=== PATIENT | female | born 1940 | race Caucasian/White ===

== ENCOUNTER 2019-12-25 11:47 | Outpatient (CLI) | payer MEDICARE, SELFPAY ==
[2019-12-25 12:52] LABS: Alanine Aminotransferase 15 U/L (4-35); Alkaline Phosphatase 133 U/L (38-126); Aspartate Amino Transferase 21 U/L (14-36); Bilirubin,Total 0.7 mg/dL (0.2-1.3); Blood Urea Nitrogen 23 mg/dL (7-17); Calcium 8.4 mg/dL (8.4-10.2); Carbon Dioxide 22 mmol/L (22-30); Chloride 102 mmol/L (98-107); Estimated Glomerular Filt Rate > 60; Glucose 104 mg/dL (65-105); Potassium 3.7 mmol/L (3.4-5.0); Sodium 139 mmol/L (137-145)
[2019-12-25 13:05] LABS: Parathyroid Intact 4.5 pg/mL (7.5-53.5)
[2019-12-25 13:21] LABS: Vitamin D 25 Hydroxy 41.2 ng/mL
== END 2019-12-25 11:48 | disposition home or self-care (01) ==
LOC: ANHLAB 11:49
PROVIDERS: PCP Internal Medicine; Visit Provider Internal Medicine
DX: E21.3 Hyperparathyroidism, unspecified (principal); E55.9 Vitamin D deficiency, unspecified
CPT/HCPCS: 36415; 80053; 82306; 83970

== ENCOUNTER 2020-01-08 10:27 | Outpatient (CLI) | payer MEDICARE, SELFPAY ==
--- NOTE | ~2020-01-08 | XR_ITS ---
XR abdomen/kub 1V 01/08/2020 10:58 Indication: Bilateral renal stones Procedure: KUB Comparison: 10/28/2019 Findings: There are multiple bilateral renal stones. There is calcified uterine fibroid in the pelvis . There is a left internal ureteral stent in place. Bowel gas pattern is nonobstructive. Moderate lum bar spondylosis with levoscoliosis. Impression: 1: Bilateral nephrolithiasis with left internal ureteral stent in expected position. 2: Bowel gas pattern is nonobstructive. Reviewed, dictated and finalized at location B. EL FILLER Impression: 1: Bilateral nephrolithiasis with left internal ureteral stent in expected posi tion. 2: Bowel gas pattern is nonobstructive.
[2020-01-08 12:11] LABS: Calcium 8.7 mg/dL (8.4-10.2)
[2020-01-08 12:22] LABS: Parathyroid Intact 18.1 pg/mL (7.5-53.5)
== END 2020-01-08 10:28 | disposition home or self-care (01) ==
PROVIDERS: PCP Internal Medicine; Visit Provider Urology
DX: N20.0 Calculus of kidney (principal)
CPT/HCPCS: 36415; 74018; 82310; 83970